=== PATIENT | female | born 1995 | race African-American/Black ===

== ENCOUNTER 2020-12-01 02:00 | Inpatient (IN) | payer OTHER ==
[2020-12-01] MEDS ORDERED: ELECTROLYTE-148 SOLN 500 ML IV ONE (03:15)
[2020-12-01] MEDS ORDERED: ePHEDrine SULFATE 50 MG/1 ML AMPULE ONE (03:15)
[2020-12-01] MEDS ORDERED: CITRIC ACID/SODIUM CITRATE 30 ML UNIT-DOSE CUP PO ONE (03:15)
[2020-12-01] MEDS ORDERED: ELECTROLYTE-148 SOLN 1,000 ML IV SCH (03:15)
[2020-12-01] MEDS ORDERED: OXYTOCIN 10 UNITS/ML VIAL ONE (03:20)
[2020-12-01] MEDS ORDERED: KETOROLAC TROMETHAMINE 30 MG/1 ML VIAL ONE (03:20)
[2020-12-01] MEDS ORDERED: ONDANSETRON 4 MG/2 ML VIAL ONE (03:20)
[2020-12-01] MEDS ORDERED: ceFAZolin SODIUM 1 GM VIAL ONE (03:20)
[2020-12-01 04:47] VITALS: BMI 36.6
[2020-12-01] MEDS ORDERED: OXYTOCIN 20 UNITS in 0.9% NS 20 UNIT/1,000 ML INFUS.BAG IV ONE (05:21)
[2020-12-01] MEDS ORDERED: METHYLERGONOVINE MALEATE 0.2 MG/1 ML AMP IM PRN (05:28)
[2020-12-01] MEDS ORDERED: IBUPROFEN 800 MG/8 ML IJ IVPB PRN (05:28)
[2020-12-01] MEDS ORDERED: SENNOSIDES/DOCUSATE COMBO (SENNA PLUS) TABLET (UD) PO PRN (05:28)
[2020-12-01] MEDS ORDERED: OXYTOCIN 20 UNITS in 0.9% NS 20 UNIT/1,000 ML INFUS.BAG IV SCH (05:30)
[2020-12-01] MEDS: CEFAZOLIN 1 GM/D5W 1 GM/50 ML BAG IVPB SCH ×2 (10:00→17:31)
[2020-12-01] MEDS: ENOXAPARIN NA (PORCINE) 40 MG/0.4 ML DISP.SYRIN SQ SCH (17:31)
[2020-12-02] MEDS: IBUPROFEN 600 MG TABLET (FP) PO PRN ×3 (00:37→17:45)
[2020-12-02] MEDS: SIMETHICONE 80 MG TAB.CHEW (FP) PO PRN ×3 (00:37→17:45)
[2020-12-02] MEDS: oxyCODONE HCL 5 MG TABLET PO PRN (00:38)
[2020-12-02] MEDS: CEFAZOLIN 1 GM/D5W 1 GM/50 ML BAG IVPB SCH (01:17)
[2020-12-02] MEDS ORDERED: BISACODYL 10 MG SUPP.RECT RC PRN (05:28)
[2020-12-02] MEDS: PRENATAL VITAMINS W/ FOLIC ACID TABLET (FP) PO SCH (09:45)
[2020-12-02] MEDS: ACETAMINOPHEN 325 MG TABLET (FP) PO PRN ×2 (09:45→17:46)
[2020-12-02] MEDS: FERROUS SO4 325 MG TABLET (FP) PO SCH ×2 (09:45→21:28)
[2020-12-02] MEDS: ENOXAPARIN NA (PORCINE) 40 MG/0.4 ML DISP.SYRIN SQ SCH (09:46)
[2020-12-02 09:59] LABS: BASO % 0.2 % (0-2.0); EOS % 0.6 % (0-4.5); HEMATOCRIT 37.5 % (32.4-45.2); LYMPH % 21.9 % (8-40); MCHC 34.6 g/dl (32.0-36.0); MEAN CELL VOLUME 98.3 fl (80-96); MEAN PLT VOLUME 9.2 fl (7.5-11.1); MONO % 6.4 % (3.8-10.2); NEUT % 70.9 % (42.8-82.8); PLATELET COUNT 216 10^3/uL (134-434); RBC 3.81 M/mm3 (3.60-5.2); RDW 13.6 % (11.6-15.6); WHITE BLOOD COUNT 10.8 K/mm3 (4.0-10.0)
[2020-12-03] MEDS: oxyCODONE HCL 5 MG TABLET PO PRN (00:28)
[2020-12-03] MEDS: SIMETHICONE 80 MG TAB.CHEW (FP) PO PRN ×2 (00:29→08:19)
[2020-12-03] MEDS: IBUPROFEN 600 MG TABLET (FP) PO PRN ×3 (08:19→20:55)
[2020-12-03] MEDS: ENOXAPARIN NA (PORCINE) 40 MG/0.4 ML DISP.SYRIN SQ SCH (09:09)
[2020-12-03] MEDS: PRENATAL VITAMINS W/ FOLIC ACID TABLET (FP) PO SCH (09:09)
[2020-12-03] MEDS: FERROUS SO4 325 MG TABLET (FP) PO SCH ×2 (09:10→21:06)
[2020-12-04] MEDS: ACETAMINOPHEN 325 MG TABLET (FP) PO PRN (08:49)
[2020-12-04 10:31] VITALS: BP 113/64; PULSE 80; TEMP 97.8
[2020-12-04] MEDS: FERROUS SO4 325 MG TABLET (FP) PO SCH (10:48)
[2020-12-04] MEDS: PRENATAL VITAMINS W/ FOLIC ACID TABLET (FP) PO SCH (10:48)
[2020-12-04] MEDS: ENOXAPARIN NA (PORCINE) 40 MG/0.4 ML DISP.SYRIN SQ SCH (10:48)
[2020-12-04 11:36] LABS: BASO % 0.6 % (0-2.0); HEMATOCRIT 33.9 % (32.4-45.2); HEMOGLOBIN 11.9 GM/dL (10.7-15.3); LYMPH % 23.4 % (8-40); MCH 34.1 pg (25.7-33.7); MEAN CELL VOLUME 97.4 fl (80-96); MEAN PLT VOLUME 8.6 fl (7.5-11.1); MONO % 5.6 % (3.8-10.2); NEUT % 68.4 % (42.8-82.8); PLATELET COUNT 247 10^3/uL (134-434); RBC 3.48 M/mm3 (3.60-5.2); RDW 13.2 % (11.6-15.6); WHITE BLOOD COUNT 6.7 K/mm3 (4.0-10.0)
== END 2020-12-04 12:15 | disposition home or self-care (01) | DRG 540 ==
LOC: JDEL 02:00 → JLDR 02:30 → J3W 07:33
PROVIDERS: ADMIT Obstetrics & Gynecology; ATTEND Obstetrics & Gynecology
PROC: 10D00Z1 Extraction of Products of Conception, Low, Open Approach (ICD-10-PCS; principal; 2020-12-01)
PROC: 0DNU0ZZ Release Omentum, Open Approach (ICD-10-PCS; 2020-12-01)
DX: O34.211 Maternal care for low transverse scar from previous cesarean delivery (principal); O99.214 Obesity complicating childbirth; E66.9 Obesity, unspecified; O99.62 Diseases of the digestive system complicating childbirth; K66.0 Peritoneal adhesions (postprocedural) (postinfection); Z3A.39 39 weeks gestation of pregnancy; Z37.0 Single live birth
CPT/HCPCS: 36415; 80053; 85025; 85610; 86850; 86900; 86901; C9803; U0003; U0005

== ENCOUNTER 2022-12-14 07:47 | Emergency (ER) | payer OTHER ==
[2022-12-14 07:59] VITALS: BMI 29.4
[2022-12-14 09:44] LABS: BASO % 0.8 % (0-2.0); EOS % 6.3 % (0-4.5); HEMATOCRIT 38.2 % (32.4-45.2); LYMPH % 22.8 % (8-40); MCH 31.2 pg (25.7-33.7); MEAN CELL VOLUME 91.7 fl (80-96); MEAN PLT VOLUME 8.6 fl (7.5-11.1); MONO % 8.8 % (3.8-10.2); NEUT % 61.3 % (42.8-82.8); PLATELET COUNT 248 10^3/uL (134-434); RBC 4.16 M/mm3 (3.60-5.2); RDW 13.1 % (11.6-15.6); WHITE BLOOD COUNT 4.5 K/mm3 (4.0-10.0)
[2022-12-14 10:07] LABS: POTASSIUM 3.6 mmol/L (3.5-5.1)
[2022-12-14 10:10] LABS: ALBUMIN 4.2 g/dl (3.4-5.0); BLOOD UREA NITROGEN 9.5 mg/dL (7-18)
[2022-12-14 10:13] LABS: CREATININE 0.8 mg/dL (0.55-1.3)
[2022-12-14 10:14] LABS: BILIRUBIN,TOTAL 0.4 mg/dL (0.2-1); TOT PROT 8.4 g/dl (6.4-8.2)
[2022-12-14 10:21] VITALS: BP 109/72; PULSE 80; RESP 18; TEMP 98.3
== END 2022-12-14 11:25 | disposition home or self-care (01) ==
LOC: JER 07:47
DX: R55 Syncope and collapse (principal); R42 Dizziness and giddiness; J34.89 Other specified disorders of nose and nasal sinuses; R05.9 Cough, unspecified; R50.9 Fever, unspecified; R53.83 Other fatigue; R10.84 Generalized abdominal pain; U07.1 COVID-19
CPT/HCPCS: 0241U-QW; 36415; 71045-TC-FY; 80053; 82962; 84484; 85025; 93005; 93010; 99285-25

== ENCOUNTER 2023-03-26 16:23 | Emergency (ER) | payer OTHER ==
[2023-03-26 16:35] VITALS: BP 103/57; PULSE 92; RESP 18; TEMP 98.4; BMI 31.9
[2023-03-26] MEDS ORDERED: ACETAMINOPHEN 500 MG TABLET (FP) PO ONE (17:10)
[2023-03-26] MEDS ORDERED: LIDOCAINE 4% PATCH TP ONE ×2 (17:10→17:13)
[2023-03-26] MEDS ORDERED: SODIUM CHLORIDE 0.9% 500 ML INFUS.BAG IV ONE (17:11)
[2023-03-26] MEDS ORDERED: ACETAMINOPHEN 500 MG TABLET (FP) ONE (17:13)
[2023-03-26 17:47] LABS: URINE APPEARANCE CLEAR; URINE COLOR YELLOW; URINE GLUCOSE (UA) NEGATIVE (NEGATIVE)
[2023-03-26 17:48] LABS: PH,URINE 6.5 (5.0-8.0); URINE BILIRUBIN NEGATIVE (NEGATIVE); URINE KETONE NEGATIVE (NEGATIVE); URINE NITRITE NEGATIVE (NEGATIVE); URINE PROTEIN NEGATIVE (NEGATIVE); URINE UROBILINOGEN 0.2 mg/dL (0.2-1.0)
[2023-03-26 17:49] LABS: URINE BACTERIA RARE /uL (0-1359); URINE LEUK ESTERASE SMALL (NEGATIVE); URINE RBC 0-2 /uL (0-23.9)
[2023-03-26 18:01] LABS: BASO % 0.4 % (0-2.0); EOS % 2.1 % (0-4.5); HEMATOCRIT 38.8 % (32.4-45.2); HEMOGLOBIN 13.2 GM/dL (10.7-15.3); LYMPH % 31.8 % (8-40); MCH 32.2 pg (25.7-33.7); MCHC 33.9 g/dl (32.0-36.0); MEAN PLT VOLUME 9.4 fl (7.5-11.1); NEUT % 58.7 % (42.8-82.8); PLATELET COUNT 256 10^3/uL (134-434); RBC 4.09 M/mm3 (3.60-5.2); WHITE BLOOD COUNT 6.2 K/mm3 (4.0-10.0)
[2023-03-26 18:12] LABS: POTASSIUM 3.6 mmol/L (3.5-5.1)
[2023-03-26 18:13] LABS: CALCIUM 8.8 mg/dL (8.5-10.1)
[2023-03-26 18:14] LABS: ALBUMIN 3.1 g/dl (3.4-5.0); BLOOD UREA NITROGEN 11.1 mg/dL (7-18)
[2023-03-26 18:17] LABS: BILIRUBIN,TOTAL 0.2 mg/dL (0.2-1); TOT PROT 6.8 g/dl (6.4-8.2)
[2023-03-26 18:27] LABS: CREATININE 0.7 mg/dL (0.55-1.3)
[2023-03-26] MEDS ORDERED: LIDOCAINE PATCH REMOVAL MC SCH (22:00)
== END 2023-03-26 19:17 | disposition home or self-care (01) ==
LOC: JERFT 16:23 → JER 16:23 → JERFT 19:17
DX: M54.40 Lumbago with sciatica, unspecified side (principal)
CPT/HCPCS: 36415; 80053; 81003; 84439; 84443; 85025; 87077; 87086; 93005; 93010; 99284-25

== ENCOUNTER 2023-04-01 22:31 | Emergency (ER) | payer SELFPAY ==
[2023-04-01 22:39] VITALS: BP 113/64; PULSE 80; RESP 20; BMI 31.6
[2023-04-01] MEDS ORDERED: ACETAMINOPHEN 1000 MG/100 ML BAG IVPB ONE (23:52)
[2023-04-01] MEDS ORDERED: SODIUM CHLORIDE 1,000 ML IV STA (23:53)
[2023-04-01] MEDS ORDERED: ACETAMINOPHEN INJECTION 100 ML IVPB ONE (23:54)
[2023-04-02 00:35] LABS: BASO % 0.3 % (0-2.0); EOS % 2.3 % (0-4.5); HEMATOCRIT 35.6 % (32.4-45.2); LYMPH % 38.1 % (8-40); MCHC 33.7 g/dl (32.0-36.0); MEAN CELL VOLUME 95.1 fl (80-96); MEAN PLT VOLUME 9.2 fl (7.5-11.1); MONO % 9.6 % (3.8-10.2); NEUT % 49.7 % (42.8-82.8); PLATELET COUNT 239 10^3/uL (134-434); RBC 3.75 M/mm3 (3.60-5.2); RDW 13.3 % (11.6-15.6); WHITE BLOOD COUNT 7.5 K/mm3 (4.0-10.0)
[2023-04-02 01:02] LABS: CALCIUM 8.2 mg/dL (8.5-10.1)
[2023-04-02 01:03] LABS: ALBUMIN 3.1 g/dl (3.4-5.0); BLOOD UREA NITROGEN 17.7 mg/dL (7-18)
[2023-04-02 01:06] LABS: CREATININE 0.6 mg/dL (0.55-1.3)
[2023-04-02 01:07] LABS: BILIRUBIN,TOTAL 0.2 mg/dL (0.2-1)
[2023-04-02 01:08] LABS: TOT PROT 6.6 g/dl (6.4-8.2)
== END 2023-04-02 02:26 | disposition home or self-care (01) ==
LOC: JER 22:31
PROC: 3E033NZ Introduction of Analgesics, Hypnotics, Sedatives into Peripheral Vein, Percutaneous Approach (ICD-10-PCS; principal; 2023-04-01)
PROC: 3E0337Z Introduction of Electrolytic and Water Balance Substance into Peripheral Vein, Percutaneous Approach (ICD-10-PCS; 2023-04-02)
DX: O20.9 Hemorrhage in early pregnancy, unspecified (principal); O26.899 Other specified pregnancy related conditions, unspecified trimester; R10.84 Generalized abdominal pain; M54.50 Low back pain, unspecified; Z3A.00 Weeks of gestation of pregnancy not specified; Z20.822 Contact with and (suspected) exposure to COVID-19
CPT/HCPCS: 0241U-QW; 36415; 76801-TC; 80053; 84702; 85025; 86850; 86900; 86901; 99284-25

== ENCOUNTER 2023-09-28 05:45 | Inpatient (IN) | payer OTHER ==
[2023-09-28] MEDS: ELECTROLYTE-148 SOLN 500 ML IV ONE ×2 (06:00→08:03)
[2023-09-28] MEDS: CITRIC ACID/SODIUM CITRATE 30 ML UNIT-DOSE CUP PO ONE (06:00)
[2023-09-28 06:28] VITALS: BMI 36.0
[2023-09-28] MEDS: ELECTROLYTE-148 SOLN 1,000 ML IV SCH ×2 (06:30→07:40)
[2023-09-28] MEDS ORDERED: LIGASURE IMPACT TP ONE (06:55)
[2023-09-28] MEDS ORDERED: morphine SULFATE/PF 1 MG/2 ML (2cc Syringe - QUVA) ONE (07:51)
[2023-09-28] MEDS ORDERED: FENTANYL CITRATE/PF 50 MCG/ML VIAL ONE (07:51)
[2023-09-28] MEDS ORDERED: IBUPROFEN 600 MG TABLET (FP) PO PRN (08:01)
[2023-09-28] MEDS ORDERED: ACETAMINOPHEN 325 MG TABLET (FP) PO PRN ×2 (08:01→08:12)
[2023-09-28] MEDS ORDERED: ceFAZolin SODIUM 1 GM VIAL ONE (08:06)
[2023-09-28] MEDS ORDERED: PHENYLEPHRINE HCL 10 MG/1 ML SINGLE DOSE VIAL ONE (08:06)
[2023-09-28] MEDS ORDERED: DEXAMETHASONE SOD PHOSPHATE 4 MG/1 ML VIAL ONE (08:06)
[2023-09-28] MEDS ORDERED: METHYLERGONOVINE MALEATE 0.2 MG/1 ML AMP IM PRN (08:12)
[2023-09-28] MEDS ORDERED: OXYTOCIN 10 UNITS/ML VIAL ONE (08:30)
[2023-09-28] MEDS ORDERED: ONDANSETRON 4 MG/2 ML VIAL ONE (09:31)
[2023-09-28] MEDS ORDERED: OXYTOCIN 20 UNITS in 0.9% NS 20 UNIT/1,000 ML INFUS.BAG IV ONE ×2 (09:31→12:48)
[2023-09-28] MEDS: OXYTOCIN 20 UNITS in 0.9% NS 20 UNIT/1,000 ML INFUS.BAG IV SCH (09:35)
[2023-09-28] MEDS: ONDANSETRON 4 MG/2 ML VIAL IVPUSH PRN (09:36)
[2023-09-28] MEDS ORDERED: ACETAMINOPHEN INJECTION 100 ML IVPB ONE (11:08)
[2023-09-28] MEDS: ACETAMINOPHEN 1000 MG/100 ML BAG IVPB ONE (11:20)
[2023-09-28] MEDS: METHYLERGONOVINE MALEATE 0.2 MG/1 ML AMP IM ONE (11:30)
[2023-09-28] MEDS ORDERED: MISOPROSTOL 200 MCG TABLET ONE (11:37)
[2023-09-28] MEDS: MISOPROSTOL 100 MCG TABLET PV ONE (11:40)
[2023-09-28 12:55] LABS: HEMATOCRIT 35.9 % (32.4-45.2); HEMOGLOBIN 12.1 GM/dL (10.7-15.3); MCH 29.7 pg (25.7-33.7); MCHC 33.6 g/dl (32.0-36.0); MEAN CELL VOLUME 88.5 fl (80-96); MEAN PLT VOLUME 8.5 fl (7.5-11.1); PLATELET COUNT 268 10^3/uL (134-434); RBC 4.06 M/mm3 (3.60-5.2); RDW 14.6 % (11.6-15.6); WHITE BLOOD COUNT 13.4 K/mm3 (4.0-10.0)
[2023-09-28] MEDS: IBUPROFEN 800 MG/8 ML IJ IVPB PRN (13:15)
[2023-09-28 14:11] LABS: ANISOCYTOSIS 0; MACROCYTOSIS 0
[2023-09-28] MEDS: METHYLERGONOVINE MALEATE 0.2 MG TABLET (FP) PO SCH (16:23)
[2023-09-28] MEDS: CEFAZOLIN 1 GM in DEXTROSE 5%-WATER - 50 ML IVPB ONE (17:50)
[2023-09-28] MEDS ORDERED: oxyCODONE HCL 5 MG TABLET PO PRN (20:12)
[2023-09-29] MEDS: SIMETHICONE 80 MG TAB.CHEW (FP) PO PRN (06:26)
[2023-09-29] MEDS: IBUPROFEN 600 MG TABLET (FP) PO PRN (06:26)
[2023-09-29 07:59] LABS: BASO % 0.3 % (0-2.0); EOS % 0.5 % (0-4.5); HEMATOCRIT 36.1 % (32.4-45.2); HEMOGLOBIN 11.8 GM/dL (10.7-15.3); MCH 29.4 pg (25.7-33.7); MCHC 32.8 g/dl (32.0-36.0); MEAN CELL VOLUME 89.7 fl (80-96); MEAN PLT VOLUME 8.7 fl (7.5-11.1); NEUT % 83.2 % (42.8-82.8); PLATELET COUNT 266 10^3/uL (134-434); RBC 4.02 M/mm3 (3.60-5.2); RDW 14.8 % (11.6-15.6); WHITE BLOOD COUNT 13.1 K/mm3 (4.0-10.0)
[2023-09-29] MEDS ORDERED: BISACODYL 10 MG SUPP.RECT RC PRN (08:12)
[2023-09-29 22:23] VITALS: RESP 18
[2023-09-30 22:44] VITALS: TEMP 98.2
[2023-10-01 06:38] LABS: BASO % 0.4 % (0-2.0); EOS % 3.5 % (0-4.5); HEMOGLOBIN 10.2 GM/dL (10.7-15.3); LYMPH % 23.5 % (8-40); MCH 30.4 pg (25.7-33.7); MCHC 34.1 g/dl (32.0-36.0); MEAN PLT VOLUME 8.5 fl (7.5-11.1); MONO % 9.9 % (3.8-10.2); NEUT % 62.7 % (42.8-82.8); PLATELET COUNT 272 10^3/uL (134-434); RBC 3.37 M/mm3 (3.60-5.2); RDW 14.7 % (11.6-15.6); WHITE BLOOD COUNT 7.2 K/mm3 (4.0-10.0)
[2023-10-01 09:18] VITALS: BP 106/67; PULSE 105
== END 2023-10-01 12:40 | disposition home or self-care (01) | DRG 540 ==
LOC: JLDR 05:45 → J3W 13:09
PROVIDERS: ADMIT Student in an Organized Health Care Education/Training Program; ATTEND Student in an Organized Health Care Education/Training Program
PROC: 10D00Z1 Extraction of Products of Conception, Low, Open Approach (ICD-10-PCS; principal; 2023-09-28)
PROC: 0UT50ZZ Resection of Right Fallopian Tube, Open Approach (ICD-10-PCS; 2023-09-28)
PROC: 0UB60ZZ Excision of Left Fallopian Tube, Open Approach (ICD-10-PCS; 2023-09-28)
DX: O34.219 Maternal care for unspecified type scar from previous cesarean delivery (principal); Z3A.39 39 weeks gestation of pregnancy; Z37.0 Single live birth; Z30.2 Encounter for sterilization
CPT/HCPCS: 36415; 59409; 80053; 81003; 85025; 85610; 86780; 86850; 86900; 86901; 88305-TC; 88307-TC; 94010; J0131

== ENCOUNTER 2024-10-10 02:30 | Emergency (ER) | payer OTHER ==
[2024-10-10 02:39] VITALS: TEMP 98; BMI 32.1
[2024-10-10] MEDS ORDERED: ONDANSETRON 4 MG/2 ML VIAL ONE (03:10)
[2024-10-10] MEDS ORDERED: ACETAMINOPHEN INJECTION 100 ML ONE (03:10)
[2024-10-10] MEDS ORDERED: MAG HYDROX/AL HYDROX/SIMETH 30 ML UNIT-DOSE CUP ONE (03:10)
[2024-10-10] MEDS ORDERED: FAMOTIDINE 20 MG/50 ML IVPB 20 MG/50 ML MG IVPB ONE (03:10)
[2024-10-10] MEDS: MAG HYDROX/AL HYDROX/SIMETH 30 ML UNIT-DOSE CUP PO ONE (03:31)
[2024-10-10] MEDS: ACETAMINOPHEN 1000 MG/100 ML BAG IVPB ONE (03:31)
[2024-10-10] MEDS: SODIUM CHLORIDE 0.9% 500 ML INFUS.BAG IV ONE (03:31)
[2024-10-10] MEDS: FAMOTIDINE 20 MG/50 ML IVPB 20 MG/50 ML MG IVPB ONE (03:31)
[2024-10-10] MEDS: ONDANSETRON 4 MG/2 ML VIAL IVPUSH ONE (03:32)
[2024-10-10 03:45] LABS: ABSOLUTE IMMATURE GRANULOCYTES 0.02 x10^3/uL (0.0-0.031); BASOPHILS # 0.04 x10^3/uL (0.01-0.08); EOSINOPHIL % 1.5 % (0.7-5.8); EOSINOPHILS # 0.13 x10^3/uL (0.04-0.36); MCHC 34.0 g/dl (32.2-35.5); MEAN CELL VOLUME 91.5 fl (79.4-94.8); MEAN PLT VOLUME 10.8 fl (9.4-12.3); MONOCYTE # 0.58 x10^3/uL (0.24-0.86); MONOCYTE % 6.7 % (4.7-12.5); RDW 12.1 % (12.1-16.5)
[2024-10-10 04:04] LABS: CO2 23.0 mmol/L (21-32); GLUCOSE,RANDOM 111.0 mg/dL (74-106)
[2024-10-10 04:07] LABS: CREATININE 0.8 mg/dL (0.55-1.3); SGOT/AST 18.0 U/L (15-37); SGPT/ALT 25.0 U/L (13-61)
[2024-10-10 04:08] LABS: TOT PROT 7.5 g/dl (6.4-8.2)
[2024-10-10 04:10] LABS: ALK PHOS 96.0 U/L (45-117)
[2024-10-10 05:27] LABS: HCV DIAGNOSTIC IN-HOUSE W/RFLX NON-REACTIVE (NONREACTIVE)
[2024-10-10 05:28] LABS: HIV INTERPRETATION NEGATIVE (NEGATIVE)
[2024-10-10 06:18] VITALS: BP 128/79; PULSE 82; RESP 17
== END 2024-10-10 05:40 | disposition home or self-care (01) ==
LOC: JER 02:30
PROC: 3E033GC Introduction of Other Therapeutic Substance into Peripheral Vein, Percutaneous Approach (ICD-10-PCS; principal; 2024-10-10)
PROC: 3E033NZ Introduction of Analgesics, Hypnotics, Sedatives into Peripheral Vein, Percutaneous Approach (ICD-10-PCS; 2024-10-10)
PROC: 3E033GC Introduction of Other Therapeutic Substance into Peripheral Vein, Percutaneous Approach (ICD-10-PCS; 2024-10-10)
DX: R11.2 Nausea with vomiting, unspecified (principal); R19.7 Diarrhea, unspecified; R10.84 Generalized abdominal pain
CPT/HCPCS: 36415; 80053; 83690; 83735; 84703; 85025; 86803; 87389; 93005; 93010; 99284-25